=== PATIENT | male | born 1980 | race Caucasian/White ===

== ENCOUNTER 2018-11-20 14:59 | Emergency (ER) | payer OTHER ==
[2018-11-20] MEDS ORDERED: SODIUM CHLORIDE 0.9% 1,000 ML IV STA (15:20)
[2018-11-20] MEDS ORDERED: ACETAMINOPHEN TAB 325 MG TAB PO STA (15:38)
[2018-11-20] MEDS ORDERED: KETOROLAC 30 MG/ML 1 ML VIAL IVP STA (15:38)
--- NOTE | 2018-11-20 15:41 | ED ---
Fever HPI - General Source: family, RN notes reviewed Mode of arrival: ambulatory Limitations: no limitations <Kenyon Lundberg - Last Filed: 11/20/18 15:39> <Laure Walker - Last Filed: 11/21/18 00:04> - General Chief Complaint: Fever Stated Complaint: Body Aches, Chest Pain Time Seen by Provider: 11/20/18 15:20 - History of Present Illness Initial Comments: 38-year-old male presents emergency Department with chief complaint of a fever. Patient states he's felt febrile last couple days and states that he is achy in his muscle and joints. He states had a slight cough but nothing much. He states he's had some left sided chest discomfort and states that it comes and goes like it's squeezing his chest. Patient has not taken any recent Tylenol Motrin. Denies any abdominal pain denies any GI symptoms including nausea, vomiting, diarrhea constipation. Patient denies any sick contacts no recent traveling denies any rashes. (Kenyon Lundberg) - Related Data Previous Rx's Medication Instructions Recorded Albuterol Sulfate [Proair Hfa] 1 - 2 puff INHALATION Q4HR PRN #1 11/20/18 inhaler Azithromycin [Zithromax Z-pack] 250 mg PO DIRECTED #6 tab 11/20/18 Ibuprofen [Motrin] 600 mg PO Q8HR PRN #30 tab 11/20/18 Allergies Allergy/AdvReac Type Severity Reaction Status Date / Time No Known Allergies Allergy Verified 11/20/18 18:24 Review of Systems ROS Other: All systems not noted in ROS Statement are negative. <Kenyon Lundberg - Last Filed: 11/20/18 15:39> ROS Other: All systems not noted in ROS Statement are negative. <Laure Walker - Last Filed: 11/21/18 00:04> ROS Statement: Those systems with pertinent positive or pertinent negative responses have been documented in the HPI. Past Medical History Past Medical History: No Reported History History of Any Multi-Drug Resistant Organisms: None Reported Past Surgical History: No Surgical Hx Reported Past Psychological History: No Psychological Hx Reported Smoking Status: Current every day smoker Past Alcohol Use History: Daily Past Drug Use History: Marijuana <Kenyon Lundberg - Last Filed: 11/20/18 15:39> General Exam Limitations: no limitations General appearance: alert, in no apparent distress Head exam: Present: atraumatic, normocephalic, normal inspection Eye exam: Present: normal appearance, PERRL, EOMI. Absent: scleral icterus, conjunctival injection, periorbital swelling ENT exam: Present: normal exam, normal oropharynx, mucous membranes moist, TM's normal bilaterally Neck exam: Present: normal inspection, full ROM. Absent: tenderness, meningismus, lymphadenopathy Respiratory exam: Present: normal lung sounds bilaterally. Absent: respiratory distress, wheezes, rales, rhonchi, stridor Cardiovascular Exam: Present: normal rhythm, tachycardia, normal heart sounds. Absent: systolic murmur, diastolic murmur, rubs, gallop, clicks GI/Abdominal exam: Present: soft, normal bowel sounds. Absent: distended, tenderness, guarding, rebound, rigid Back exam: Absent: CVA tenderness (R), CVA tenderness (L) Neurological exam: Present: alert, oriented X3, CN II-XII intact Skin exam: Present: warm, dry, intact, normal color. Absent: rash <Kenyon Lundberg - Last Filed: 11/20/18 15:39> Course Vital Signs 11/20/18 11/20/18 11/20/18 15:10 16:18 16:39 Temperature 99.6 F 101.5 F H 98.6 F Pulse Rate 125 H 99 Respiratory 24 Rate Blood Pressure 114/71 O2 Sat by Pulse 99 Oximetry 11/20/18 11/20/18 18:17 19:01 Temperature Pulse Rate 76 80 Respiratory 16 16 Rate Blood Pressure 148/76 141/76 O2 Sat by Pulse 99 99 Oximetry Medical Decision Making - Lab Data Result diagrams: 11/20/18 15:32 11/20/18 15:32 <Laure Walker - Last Filed: 11/21/18 00:04> - Medical Decision Making Upon arrival the patient was placed into room 18. We did conduct laboratory studies and a chest x-ray was performed. Peripheral IV is established. He was given Toradol and a liter of fluid. He was also given Tylenol. The patient was reevaluated and had improvement in his heart rate and fever. The patient still complained of diffuse body aches and therefore I did give him 4 mg of morphine. Review the patient's laboratory studies. I did demonstrate a with count of 16.2. Platelets 142. Sodium 1:30. Chloride 96. Glucose 148. Urinalysis shows 4+ ketones. X-ray demonstrates perihilar airspace opacities left upper lobe may represent multifocal pneumonia. I discussed these results with the patient. I did give him a dose of Rocephin. I discussed consultation with the patient however he refused. The patient will be discharged home and given a prescription for azithromycin, albuterol inhaler and Motrin. He will follow up with his primary care physician for reevaluation. He must have a repeat chest x-ray in 6 weeks to ensure resolution. The patient has any new or worsening symptoms he should return to the hospital for IV antibiotics. The patient understood this as well as his significant other at bedside. He was discharged home in stable condition (Laure Walker) - Lab Data Lab Results 11/20/18 11/20/18 11/20/18 Range/Units 15:32 15:32 15:32 WBC 16.2 H (3.8-10.6) k/uL RBC 4.54 (4.30-5.90) m/uL Hgb 15.1 (13.0-17.5) gm/dL Hct 44.6 (39.0-53.0) % MCV 98.2 (80.0-100.0) fL MCH 33.2 (25.0-35.0) pg MCHC 33.8 (31.0-37.0) g/dL RDW 12.5 (11.5-15.5) % Plt Count 142 L (150-450) k/uL Neutrophils % 89 % Lymphocytes % 2 % Monocytes % 5 % Eosinophils % 1 % Basophils % 2 % Neutrophils # 14.4 H (1.3-7.7) k/uL Lymphocytes # 0.4 L (1.0-4.8) k/uL Monocytes # 0.8 (0-1.0) k/uL Eosinophils # 0.2 (0-0.7) k/uL Basophils # 0.3 H (0-0.2) k/uL Sodium 130 L (137-145) mmol/L Potassium 4.0 (3.5-5.1) mmol/L Chloride 96 L (98-107) mmol/L Carbon Dioxide 21 L (22-30) mmol/L Anion Gap 13 mmol/L BUN 9 (9-20) mg/dL Creatinine 0.64 L (0.66-1.25) mg/dL Est GFR (CKD-EPI)AfAm >90 (>60 ml/min/1.73 sqM) Est GFR (CKD-EPI)NonAf >90 (>60 ml/min/1.73 sqM) Glucose 148 H (74-99) mg/dL Plasma Lactic Acid Enoch (0.7-2.0) mmol/L Calcium 9.5 (8.4-10.2) mg/dL Total Bilirubin 1.6 H (0.2-1.3) mg/dL AST 38 (17-59) U/L ALT 51 (21-72) U/L Alkaline Phosphatase 44 (38-126) U/L Creatine Kinase 47 L (55-170) U/L Troponin I (0.000-0.034) ng/mL Total Protein 6.9 (6.3-8.2) g/dL Albumin 4.3 (3.5-5.0) g/dL Urine Color Urine Appearance (Clear) Urine pH (5.0-8.0) Ur Specific [place] (1.001-1.035) Urine Protein (Negative) Urine Glucose (UA) (Negative) Urine Ketones (Negative) Urine Blood (Negative) Urine Nitrite (Negative) Urine Bilirubin (Negative) Urine Urobilinogen (<2.0) mg/dL Ur Leukocyte Esterase (Negative) Heterophile Antibody Negative (Negative) Influenza Type A RNA (Not Detectd) Influenza Type B (PCR) (Not Detectd) 11/20/18 11/20/18 11/20/18 Range/Units 15:32 15:32 15:32 WBC (3.8-10.6) k/uL RBC (4.30-5.90) m/uL Hgb (13.0-17.5) gm/dL Hct (39.0-53.0) % MCV (80.0-100.0) fL MCH (25.0-35.0) pg MCHC (31.0-37.0) g/dL RDW (11.5-15.5) % Plt Count (150-450) k/uL Neutrophils % % Lymphocytes % % Monocytes % % Eosinophils % % Basophils % % Neutrophils # (1.3-7.7) k/uL Lymphocytes # (1.0-4.8) k/uL Monocytes # (0-1.0) k/uL Eosinophils # (0-0.7) k/uL Basophils # (0-0.2) k/uL Sodium (137-145) mmol/L Potassium (3.5-5.1) mmol/L Chloride (98-107) mmol/L Carbon Dioxide (22-30) mmol/L Anion Gap mmol/L BUN (9-20) mg/dL Creatinine (0.66-1.25) mg/dL Est GFR (CKD-EPI)AfAm (>60 ml/min/1.73 sqM) Est GFR (CKD-EPI)NonAf (>60 ml/min/1.73 sqM) Glucose (74-99) mg/dL Plasma Lactic Acid Enoch 1.5 (0.7-2.0) mmol/L Calcium (8.4-10.2) mg/dL Total Bilirubin (0.2-1.3) mg/dL AST (17-59) U/L ALT (21-72) U/L Alkaline Phosphatase (38-126) U/L Creatine Kinase (55-170) U/L Troponin I <0.012 (0.000-0.034) ng/mL Total Protein (6.3-8.2) g/dL Albumin (3.5-5.0) g/dL Urine Color Urine Appearance (Clear) Urine pH (5.0-8.0) Ur Specific [place] (1.001-1.035) Urine Protein (Negative) Urine Glucose (UA) (Negative) Urine Ketones (Negative) Urine Blood (Negative) Urine Nitrite (Negative) Urine Bilirubin (Negative) Urine Urobilinogen (<2.0) mg/dL Ur Leukocyte Esterase (Negative) Heterophile Antibody (Negative) Influenza Type A RNA Not Detected (Not Detectd) Influenza Type B (PCR) Not Detected (Not Detectd) 11/20/18 Range/Units 16:36 WBC (3.8-10.6) k/uL RBC (4.30-5.90) m/uL Hgb (13.0-17.5) gm/dL Hct (39.0-53.0) % MCV (80.0-100.0) fL MCH (25.0-35.0) pg MCHC (31.0-37.0) g/dL RDW (11.5-15.5) % Plt Count (150-450) k/uL Neutrophils % % Lymphocytes % % Monocytes % % Eosinophils % % Basophils % % Neutrophils # (1.3-7.7) k/uL Lymphocytes # (1.0-4.8) k/uL Monocytes # (0-1.0) k/uL Eosinophils # (0-0.7) k/uL Basophils # (0-0.2) k/uL Sodium (137-145) mmol/L Potassium (3.5-5.1) mmol/L Chloride (98-107) mmol/L Carbon Dioxide (22-30) mmol/L Anion Gap mmol/L BUN (9-20) mg/dL Creatinine (0.66-1.25) mg/dL Est GFR (CKD-EPI)AfAm (>60 ml/min/1.73 sqM) Est GFR (CKD-EPI)NonAf (>60 ml/min/1.73 sqM) Glucose (74-99) mg/dL Plasma Lactic Acid Enoch (0.7-2.0) mmol/L Calcium (8.4-10.2) mg/dL Total Bilirubin (0.2-1.3) mg/dL AST (17-59) U/L ALT (21-72) U/L Alkaline Phosphatase (38-126) U/L Creatine Kinase (55-170) U/L Troponin I (0.000-0.034) ng/mL Total Protein (6.3-8.2) g/dL Albumin (3.5-5.0) g/dL Urine Color Yellow Urine Appearance Clear (Clear) Urine pH 5.5 (5.0-8.0) Ur Specific [place] 1.027 (1.001-1.035) Urine Protein Trace H (Negative) Urine Glucose (UA) Trace H (Negative) Urine Ketones 4+ H (Negative) Urine Blood Negative (Negative) Urine Nitrite Negative (Negative) Urine Bilirubin 1+ H (Negative) Urine Urobilinogen 4.0 (<2.0) mg/dL Ur Leukocyte Esterase Negative (Negative) Heterophile Antibody (Negative) Influenza Type A RNA (Not Detectd) Influenza Type B (PCR) (Not Detectd) Disposition <Dedoe,Kenyon M - Last Filed: 11/20/18 15:39> Is patient prescribed a controlled substance at d/c from ED?: No Time of Disposition: 18:44 <Laure Walker - Last Filed: 11/21/18 00:04> Clinical Impression: Pneumonia Disposition: HOME SELF-CARE Condition: Stable Instructions (If sedation given, give patient instructions): Bacterial Pneumonia (ED) Additional Instructions: Please follow-up with you primary care physician in 2-4 days for reevaluation. You will need a repeat chest x-ray in 6 weeks to ensure resolution. Return to the emergency room for any new or worsening symptoms Prescriptions: Ibuprofen [Motrin] 600 mg PO Q8HR PRN #30 tab PRN Reason: Pain Albuterol Sulfate [Proair Hfa] 1 - 2 puff INHALATION Q4HR PRN #1 inhaler PRN Reason: difficulty in breathing Azithromycin [Zithromax Z-pack] 250 mg PO DIRECTED #6 tab Referrals: None,Stated [Primary Care Provider] - 1-2 days
[2018-11-20 15:51] LABS: Basophils # (A) 0.3 k/uL (0-0.2); Basophils % (A) 2 %; Eosinophils # (A) 0.2 k/uL (0-0.7); Eosinophils % (A) 1 %; HCT 44.6 % (39.0-53.0); HGB 15.1 gm/dL (13.0-17.5); Lymphocytes # (A) 0.4 k/uL (1.0-4.8); Lymphocytes % (A) 2 %; MCH 33.2 pg (25.0-35.0); MCHC 33.8 g/dL (31.0-37.0); MCV 98.2 fL (80.0-100.0); Mean Platelet Volume 7.2; Monocytes # (A) 0.8 k/uL (0-1.0); Monocytes % (A) 5 %; Neutrophils # (A) 14.4 k/uL (1.3-7.7); Neutrophils % (A) 89 %; Platelet Count 142 k/uL (150-450); RBC 4.54 m/uL (4.30-5.90); RDW 12.5 % (11.5-15.5); WBC 16.2 k/uL (3.8-10.6)
[2018-11-20 16:00] LABS: ALT 51 U/L (21-72); AST 38 U/L (17-59); African American GFR (CKD) >90 (>60 ml/min/1.73 sqM); Albumin 4.3 g/dL (3.5-5.0); Alkaline Phosphatase 44 U/L (38-126); Anion Gap 13 mmol/L; Blood Urea Nitrogen 9 mg/dL (9-20); Calcium 9.5 mg/dL (8.4-10.2); Carbon Dioxide 21 mmol/L (22-30); Chloride 96 mmol/L (98-107); Creatine Kinase 47 U/L (55-170); Glucose 148 mg/dL (74-99); Sodium 130 mmol/L (137-145); Total Bilirubin 1.6 mg/dL (0.2-1.3); Total Protein 6.9 g/dL (6.3-8.2)
[2018-11-20 16:39] VITALS: TEMP 98.6
[2018-11-20 16:57] LABS: Appearance,Urine Clear (Clear); Bilirubin,Urine 1+ (Negative); Blood,Urine Negative (Negative); Color,Urine Yellow; Glucose,Urine (UA) Trace (Negative); Ketones,Urine 4+ (Negative); Leukocyte Esterase,Urine Negative (Negative); Nitrite,Urine Negative (Negative); PH, Urine 5.5 (5.0-8.0); Protein,Urine Trace (Negative); Specific Gravity,Urine 1.027 (1.001-1.035)
[2018-11-20] MEDS ORDERED: cefTRIAXone IN SWFI 1,000 MG/10 ML SYRINGE IVP STA (18:15)
[2018-11-20] MEDS ORDERED: MORPHINE SULFATE 4 MG/ML SYRINGE IVP STA (18:18)
[2018-11-20 18:19] VITALS: RESP 16
--- NOTE | 2018-11-20 18:26 | XR ---
History: ITS.REASON XR Reason: cough Exam: XR CXR 2 VIEWS Comparison: None available FINDINGS: Perihilar airspace opacities left upper lobe may represent multifocal pneumonia, clinically correlate and follow up to resolution. The right lung appears clear. No evidence of pleural effusion. The cardiac and mediastinal contours appear within limits. The visualized osseous structures appear within limits. IMPRESSION: Perihilar airspace opacities left upper lobe may represent multifocal pneumonia, clinically correlate and follow up to resolution. The right lung appears clear. No evidence of pleural effusion.
[2018-11-20 19:02] VITALS: BP 141/76; PULSE 80
== END 2018-11-20 19:02 | disposition home or self-care (01) ==
LOC: EC 14:59
DX: J18.9 Pneumonia, unspecified organism (principal); R91.8 Other nonspecific abnormal finding of lung field; F17.200 Nicotine dependence, unspecified, uncomplicated
CPT/HCPCS: 36415; 93005; 80053; 82550; 83605; 84484; 85025; 86308; 81003; 87502; 71046; 99284; 96374; 96375 ×2; 96361; J2270; J0696; J1885